=== PATIENT | female | born 1965 | race Caucasian/White ===

== ENCOUNTER 2017-04-14 05:35 | Day surgery (SDC) | payer OTHER ==
[~2017-04-14] VITALS: Ht 154.9 cm; Wt 83.9 kg
--- OUTSIDE RECORDS SUMMARY | ~2017-04-14 | XMS ---
Demographics + + + | Address | [address] | | | [place] [address] | + + + | Preferred Language | Unknown | + + + | Marital Status | Unknown | + + + | Hinduism Affiliation | Unknown | + + + | Race | Unknown | + + + | Ethnic Group | Unknown | + + + Author + + + | Author | [facility] | + + + | Organization | [facility] | + + + | Address | [address] | | | [place] [address] | + + + | Phone | | + + + Care Team Providers + + + + | Care Plow Mechanic Name | Role | Phone | + + + + Unavailable | Unavailable | + + + + PROBLEMS + + + + + + + + | Type | Condition | ICD9-CM | [id number] | Onset | Condition | SNOMED | | | | Code | Code | Dates | Status | Code | + + + + + + + + | Problem | Carpal | G56.03 | | | Active | [id number] | | | tunnel | | | | | | | | syndrome | | | | | | | | on both | | | | | | | | sides | | | | | | + + + + + + + + | Problem | HTN | | I10 | | Active | [id number] | | | (hypertens | | | | | | | | ion) | | | | | | + + + + + + + + | Assessment | Carpal | G56.03 | | 27 Apr, | Active | [id number] | | | tunnel | | | 2017 | | | | | syndrome | | | | | | | | on both | | | | | | | | sides | | | | | | + + + + + + + + | Assessment | Encounter | | Z13.89 | Jan, | Active | [id number] | | | for | | | 2016 | | | | | screening | | | | | | | | for other | | | | | | | | disorder | | | | | | + + + + + + + + ALLERGIES + + + + +--------+ | Substance | Reaction | Event Type | Date | Status | + + + + +--------+ | Percocet | migraines | Drug Allergy | Jan, | Active | + + + + +--------+ | Aspirin | stomach upset | Drug Allergy | Jan, | Active | + + + + +--------+ SOCIAL HISTORY No smoking Hx information available PLAN OF CARE VITAL SIGNS + + + + | Height | 62 in | 2017-02-03 | + + + + | Weight | 189.4 lbs | 2017-02-03 | + + + + | BMI | 34.64 kg/m2 | 2017-02-03 | + + + + | Temperature | 97.7 degrees Fahrenheit | 2017-02-03 | + + + + | Heart Rate | 79 /min | 2017-02-03 | + + + + | Blood pressure systolic | 145 mm Hg | 2017-02-03 | + + + + | Blood pressure diastolic | 110 mm Hg | 2017-02-03 | + + + + MEDICATIONS + + + + +--------+ + +--------+ | Medicati | Instruct | Dosage | Frequenc | Start | End Date | Duration | Status | | on | ions | | y | Date | | | | + + + + +--------+ + +--------+ | Diclofen | Orally | 1 tablet | 12h | | | 30 | Active | | ac | Twice a | | | | | day(s) | | | Sodium | day | | | | | | | | 75 mg | | | | | | | | + + + + +--------+ + +--------+ RESULTS No Results PROCEDURES + + + + + | Procedure | Date Ordered | Related Diagnosis | Body Site | + + + + + | Est Level III | February 03, 2017 | | | | Intermediate | | | | + + + + + | DSCHRG MED/CURRENT | February 03, 2017 | | | | MED MERGE | | | | + + + + + | DOC MEDS VERIFIED | February 03, 2017 | | | | W/PT OR RE | | | | + + + + + IMMUNIZATIONS No Known Immunizations"
--- OUTSIDE RECORDS SUMMARY | ~2017-04-14 | XMS ---
Demographics + + + | Address | [address] | | | [place] [address] | + + + | Preferred Language | Unknown | + + + | Marital Status | Unknown | + + + | Restorationism Affiliation | Unknown | + + + | Race | Unknown | + + + | Ethnic Group | Unknown | + + + Author + + + | Author | [facility] | + + + | Organization | [facility] | + + + | Address | [address] | | | [place] [address] | + + + | Phone | | + + + Care Team Providers + + + + | Care Incoming Freight Clerk Name | Role | Phone | + + + + Unavailable | Unavailable | + + + + PROBLEMS + + + + + + + + | Type | Condition | ICD9-CM | [id number] | Onset | Condition | SNOMED | | | | Code | Code | Dates | Status | Code | + + + + + + + + | Problem | Carpal | G56.03 | | | Active | [id number] | | | tunnel | | | | | | | | syndrome | | | | | | | | on both | | | | | | | | sides | | | | | | + + + + + + + + | Problem | HTN | | I10 | | Active | [id number] | | | (hypertens | | | | | | | | ion) | | | | | | + + + + + + + + | Assessment | Carpal | G56.03 | | 02 March, | Active | [id number] | | | tunnel | | | [...] Percocet | migraines | Drug Allergy | February, | Active | + + + + +--------+ | Aspirin | stomach upset | Drug Allergy | February, | Active | + + + + +--------+ SOCIAL HISTORY No smoking Hx information available PLAN OF CARE VITAL SIGNS + + + + | Height | 62 in | 2017-03-02 | + + + + | Weight | 188.8 lbs | 2017-03-02 | + + + + | BMI | 34.53 kg/m2 | 2017-03-02 | + + + + | Temperature | 98.3 degrees Fahrenheit | 2017-03-02 | + + + + | Heart Rate | 70 /min | 2017-03-02 | + + + + | Blood pressure systolic | 143 mm Hg | 2017-03-02 | + + + + | Blood pressure diastolic | 103 mm Hg | 2017-03-02 | + + + + MEDICATIONS + [...] + + | Est Level III | March 02, 2017 | | | | Intermediate | | | | + + + + + | DSCHRG MED/CURRENT | March 02, 2017 | | | | MED MERGE | | | | + + + + + | DOC MEDS VERIFIED | March 02, 2017 | | | | W/PT OR RE | | | | + + + + + IMMUNIZATIONS No Known Immunizations"
--- OUTSIDE RECORDS SUMMARY | ~2017-04-14 | XMS ---
Demographics + + + | Address | [address] | | | [place] [address] | + + + | Preferred Language | Unknown | + + + | Marital Status | Unknown | + + + | Congregation Affiliation | Unknown | + + + | Race | Unknown | + + + | Ethnic Group | Unknown | + + + Author + + + | Author | [facility] | + + + | Organization | [facility] | + + + | Address | [address] [facility] [email or web address] | | | [place] [phone] | + + + | Phone | | + + + Care Team Providers + + + + | Care Chassis Mechanic Name | Role | Phone | + + + + Unavailable | Unavailable | + + + + PROBLEMS +---------+ + + +--------+ + + | Type | Condition | ICD9-CM | [id number] | Onset | Condition | SNOMED | | | | Code | Code | Dates | Status | Code | +---------+ + + +--------+ + + | Problem | Carpal | G56.03 | | | Active | [id number] | | | tunnel | | | | | | | | syndrome | | | | | | | | on both | | | | | | | | sides | | | | | | +---------+ + + +--------+ + + | Problem | HTN | | I10 | | Active | [id number] | | | (hypertens | | | | | | | | ion) | | | | | | +---------+ + + +--------+ + + ALLERGIES Unknown Allergies SOCIAL HISTORY No smoking Hx information available PLAN OF CARE VITAL SIGNS MEDICATIONS Unknown Medications RESULTS No Results PROCEDURES No Known procedures IMMUNIZATIONS No Known Immunizations"
--- OUTSIDE RECORDS SUMMARY | ~2017-04-14 | XMS ---
Demographics + + + | Address | [address] | | | [place] [address] | + + + | Preferred Language | Unknown | + + + | Marital Status | Unknown | + + + | Druze Affiliation | Unknown | + + + | Race | Unknown | + + + | Ethnic Group | Unknown | + + + Author + + + | Author | [facility] | + + + | Organization | [facility] | + + + | Address | [address] | | | [place] [address] | + + + | Phone | | + + + Care Team Providers + + + + | Care Airplane Dispatch Clerk Name | Role | Phone | + + + + Unavailable | Unavailable | + + + + PROBLEMS +---------+ + + +--------+ + + | Type | Condition | ICD9-CM | [id number] | Onset | Condition | SNOMED | | | | Code | Code | Dates | Status | Code | +---------+ + + +--------+ + + | Problem | Carpal | G56.03 | | | Active | [id number] | | | tunnel | | | | | | | | syndrome | | | | | | | | on both | | | | | | | | sides | | | | | | +---------+ + + +--------+ + + | Problem | HTN | | I10 | | Active | [id number] | | | (hypertens | | | | | | | | ion) | | | | | | +---------+ + + +--------+ + + ALLERGIES Unknown Allergies SOCIAL HISTORY No smoking Hx information available PLAN OF CARE VITAL SIGNS MEDICATIONS Unknown Medications RESULTS No Results PROCEDURES No Known procedures IMMUNIZATIONS No Known Immunizations"
[~2017-04-14 05:35] MED LIST: DICLOFENAC SODI50 MG PO
--- NOTE | 2017-04-14 07:41 | NUR ---
04/14/17 0741 Matilda Alvarez 0720 PATIENT ARRIVES TO PACU AWAKE, BUT DROWSY, ALERT AND ORIENTED X3. ASK QUESTIONS APPROPRIATELY. DENIES PAIN OR NAUSEA. MASK AT 6 LITERS VIA NC.
== END 2017-04-14 08:17 | disposition home or self-care (01) ==
LOC: OPS 05:35 → DS 05:35 → OPS 06:45 → DS 06:45 → OPS 08:17
PROVIDERS: Orthopaedic Surgery
PROC: 01N50ZZ Release Median Nerve, Open Approach (ICD-10-PCS; principal; 2017-04-14 06:45)
DX: G56.01 Carpal tunnel syndrome, right upper limb (principal); I10 Essential (primary) hypertension; Z88.2 Allergy status to sulfonamides; Z88.1 Allergy status to other antibiotic agents; Z88.5 Allergy status to narcotic agent
CPT/HCPCS: 01810; J0690; J1100; J1885; J2250; J2405; J2704; J3010; J7120

== ENCOUNTER 2017-05-12 05:41 | Day surgery (SDC) | payer OTHER ==
[~2017-05-12] VITALS: Ht 154.9 cm; Wt 83.9 kg
[2017-05-12] MEDS ORDERED: ADVIL200 MG PO (06:00)
--- NOTE | 2017-05-12 07:53 | NUR ---
05/12/17 0753 Matilda Alvarez 7716 PATIENT ARRIVES TO PACU AWAKE, BUT DROWSY, ON MASK AT 6 LITERS. MASK REMOVED. PATIENT ON ROOM AIR, RESP EVEN AND UNLABORED. PATIENT DENIES PAIN.
[2017-05-12] MEDS ORDERED: TRAMADOL HCL50 MG PO (08:13)
--- NOTE | 2017-05-17 07:26 | OR ---
[facility] [address], [place] [address] Signed DATE OF SERVICE: 05/12/2017 PREOPERATIVE DIAGNOSIS: Carpal tunnel syndrome, left. POSTOPERATIVE DIAGNOSIS: Carpal tunnel syndrome, left. PROCEDURE: Carpal tunnel release, left. SURGEON: Mahad Mcfarlane MD. ANESTHESIA: Bart block with sedation. SPECIMEN AND COMPLICATIONS: There were no specimens or complications. TOURNIQUET TIME: About 20 minutes. DESCRIPTION OF PROCEDURE: The patient taken to the operating room. After anesthesia was induced and gently sedated, left upper extremity was positioned, prepped and draped in a routine sterile fashion. We then made an anterior volar incision beginning at the distal wrist flexion crease, extending distally for about 1.5 cm in line with the anterior mid axial line of the 4th ray. Skin was divided sharply. Subcutaneous tissue was blunt l y spread. The transverse volar carpal ligament was identified and released with the tip of a 15 blade. We then used a Ragnell-Kofi retractor to elevate the proximal flap and released the distal 3 cm of the antebrachial fascia, staying well to the ulnar s i de of the nerve. We then reversed direction and completed the release of the transverse volar carpal ligament under direct vision again using the Ragnell-Kofi retractor to elevate the distal flap. At this point, we appeared to have a complete decompression of what appeared to be a severely compromised median nerve. The wound was gently irrigated and closed in a standard fashion. A sterile dressing was applied and the patient was awakened and taken to the recovery room where he arrived in stable condition. Counts were correct and antibiotic protocols were followed. MD NAYANA Kimbrough/Patsy Electronically Signed By: MAHAD MCFARLANE MD 05/17/17 0726 PATIENT NAME: KATTY SWAN OPERATIVE REPORT DATE OF : 67 PHYSICIAN: MAHAD MCFARLANE MD REPORT #: [id number] REPORT IS CONFIDENTIAL AND NOT TO BE RELEASED WITHOUT AUTHORIZATION [facility] [address] [place] [address] Signed /[id number] Electronically Signed By: MAHAD MCFARLANE MD 05/17/17 0726 PATIENT NAME: KATTY SWAN OPERATIVE REPORT DATE OF : 67 PHYSICIAN: MAHAD MCFARLANE MD REPORT #: [id number] REPORT IS CONFIDENTIAL AND NOT TO BE RELEASED WITHOUT AUTHORIZATION
== END 2017-05-12 08:30 | disposition home or self-care (01) ==
LOC: DS 05:41 → OPS 05:41 → DS 06:45 → OPS 06:45
PROVIDERS: Orthopaedic Surgery
PROC: 01N50ZZ Release Median Nerve, Open Approach (ICD-10-PCS; principal; 2017-05-12 06:45)
DX: G56.02 Carpal tunnel syndrome, left upper limb (principal); I10 Essential (primary) hypertension; Z88.2 Allergy status to sulfonamides; Z88.5 Allergy status to narcotic agent
CPT/HCPCS: 01810; J0690; J2250; J2405; J2704; J3010; J7120

== ENCOUNTER 2017-12-01 12:09 | Emergency (ER) | payer OTHER, BC ==
[~2017-12-01] VITALS: Ht 154.9 cm; Wt 83.9 kg
--- OUTSIDE RECORDS SUMMARY | ~2017-12-01 | XMS ---
Demographics + + + | Address | [address] | | | [place] [address] | + + + | Preferred Language | Unknown | + + + | Marital Status | Unknown | + + + | Anabaptist Affiliation | Unknown | + + + | Race | Unknown | + + + | Ethnic Group | Unknown | + + + Author + + + | Author | [facility] | + + + | Organization | [facility] | + + + | Address | [address] | | | [place] [address] | + + + | Phone | | + + + Care Team Providers + + + + | Care Combat Engineer Name | Role | Phone | + + + + Unavailable | Unavailable | + + + + PROBLEMS +---------+ + + +--------+ + + | Type | Condition | ICD9-CM | [id number] | Onset | Condition | SNOMED | | | | Code | Code | Dates | Status | Code | +---------+ + + +--------+ + + | Problem | Carpal | G56.03 | | | Active | [id number] | | | tunnel | | | | | | | | syndrome | | | | | | | | on both | | | | | | | | sides | | | | | | +---------+ + + +--------+ + + | Problem | HTN | | I10 | | Active | [id number] | | | (hypertens | | | | | | | | ion) | | | | | | +---------+ + + +--------+ + + ALLERGIES + + + + +--------+ | Substance | Reaction | Event Type | Date | Status | + + + + +--------+ | Tylenol | Unknown | Drug Allergy | Mar, | Active | + + + + +--------+ | Percocet | migraines | Drug Allergy | Mar, | Active | + + + + +--------+ | Aspirin | stomach upset | Drug Allergy | Mar, | Active | + + + + +--------+ SOCIAL HISTORY No smoking Hx information available PLAN OF CARE VITAL SIGNS + + + + | Height | 62 in | 2017-03-25 | + + + + | Weight | 186.2 lbs | 2017-03-25 | + + + + | BMI | 34.05 kg/m2 | 2017-03-25 | + + + + | Temperature | 98.1 degrees Fahrenheit | 2017-03-25 | + + + + | Heart Rate | 60 /min | 2017-03-25 | + + + + | Blood pressure systolic | 145 mm Hg | 2017-03-25 | + + + + | Blood pressure diastolic | 100 mm Hg | 2017-03-25 | + + + + MEDICATIONS + [...] | + + + + + | Doctor no charge/no | March 25, 2017 | | | | charge for visit | | | | + + + + + IMMUNIZATIONS No Known Immunizations"
--- OUTSIDE RECORDS SUMMARY | ~2017-12-01 | XMS ---
Demographics + + + | Address | [address] | | | [place] [address] | + + + | Preferred Language | Unknown | + + + | Marital Status | Unknown | + + + | Christian Affiliation | Unknown | + + + | Race | Unknown | + + + | Ethnic Group | Unknown | + + + Author + + + | Author | [facility] | + + + | Organization | [facility] | + + + | Address | [address] [facility] [address] | | | [place] [phone] | + + + | Phone | | + + + Care Team Providers + + + + | Care Boxing Machine Operator Name | Role | Phone | + + + + Unavailable | Unavailable | + + + + PROBLEMS +---------+ + + +--------+ + + | Type | Condition | ICD9-CM | [id number] | Onset | Condition | SNOMED | | | | Code | Code | Dates | Status | Code | +---------+ + + +--------+ + + | Problem | Carpal | G56.03 | | | Active | [id number] | | | tunnel | | | | | | | | syndrome | | | | | | | | on both | | | | | | | | sides | | | | | | +---------+ + + +--------+ + + | Problem | HTN | | I10 | | Active | [id number] | | | (hypertens | | | | | | | | ion) | | | | | | +---------+ + + +--------+ + + ALLERGIES Unknown Allergies SOCIAL HISTORY No smoking Hx information available PLAN OF CARE VITAL SIGNS MEDICATIONS Unknown Medications RESULTS No Results PROCEDURES No Known procedures IMMUNIZATIONS No Known Immunizations"
[~2017-12-01 12:09] MED LIST changes: +ADVIL200 MG PO; +TRAMADOL HCL50 MG PO
[2017-12-01] MEDS ORDERED: DICLOFENAC POTA50 MG PO (12:22)
[2017-12-01] MEDS ORDERED: FLUOXETINE HCL10 MG PO (12:22)
[2018-01-16] MEDS ORDERED: NEURONTIN300 MG PO (12:35)
[2018-01-16] MEDS ORDERED: BACLOFEN10 MG PO (15:20)
[2018-01-16] MEDS ORDERED: BACTRIM DS TAB1 EACH PO (15:20)
[2018-01-16] MEDS ORDERED: METHYLPREDNISOLO4 M1 PO (15:20)
[2018-01-16] MEDS ORDERED: NORCO 5-325 TA1 EACH PO (15:20)
== END 2017-12-01 12:27 | disposition home or self-care (01) ==
LOC: ED 12:09
DX: M54.9 Dorsalgia, unspecified (principal)

== ENCOUNTER 2018-01-06 16:05 | Emergency (ER) | payer OTHER, BC ==
[~2018-01-06] VITALS: Ht 154.9 cm; Wt 83.9 kg
[~2018-01-06 16:05] MED LIST changes: +DICLOFENAC POTA50 MG PO; +FLUOXETINE HCL10 MG PO
[2018-01-06] MEDS ORDERED: BACLOFEN10 MG PO (16:38)
[2018-01-06] MEDS ORDERED: METHYLPREDNISOLO4 M1 PO (16:38)
[2018-01-06] MEDS ORDERED: ULTRAM50 MG PO (16:38)
[2018-01-16] MEDS ORDERED: NEURONTIN300 MG PO (12:35)
[2018-01-16] MEDS ORDERED: METHYLPREDNISOLO4 M1 PO (15:20)
[2018-01-16] MEDS ORDERED: NORCO 5-325 TA1 EACH PO (15:20)
[2018-01-16] MEDS ORDERED: BACLOFEN10 MG PO (15:20)
[2018-01-16] MEDS ORDERED: BACTRIM DS TAB1 EACH PO (15:20)
== END 2018-01-06 16:46 | disposition home or self-care (01) ==
LOC: ED 16:05
DX: M99.03 Segmental and somatic dysfunction of lumbar region (principal); M54.42 Lumbago with sciatica, left side; M54.41 Lumbago with sciatica, right side; I10 Essential (primary) hypertension; F32.9 Major depressive disorder, single episode, unspecified; Z88.5 Allergy status to narcotic agent; Z88.6 Allergy status to analgesic agent; Z79.899 Other long term (current) drug therapy
CPT/HCPCS: 99283

== ENCOUNTER 2019-11-24 10:12 | Emergency (ER) | payer OTHER ==
[~2019-11-24] VITALS: Ht 154.9 cm; Wt 74.8 kg
[~2019-11-24 10:12] MED LIST changes: +BACLOFEN10 MG PO; +BACTRIM DS TAB1 EACH PO; +METHYLPREDNISOLO4 M1 PO; +NEURONTIN300 MG PO; +NORCO 5-325 TA1 EACH PO; +ULTRAM50 MG PO
[2019-11-24] MEDS ORDERED: CYCLOBENZAPRINE10 MG PO (10:59)
[2019-11-24] MEDS ORDERED: PREDNISONE20 MG PO (10:59)
[2019-11-24] MEDS ORDERED: NORCO 5-325 TA1 EACH PO (10:59)
== END 2019-11-24 11:22 | disposition home or self-care (01) ==
LOC: ED 10:12
DX: M54.42 Lumbago with sciatica, left side (principal); I10 Essential (primary) hypertension; F32.9 Major depressive disorder, single episode, unspecified; Z79.899 Other long term (current) drug therapy
CPT/HCPCS: 99283